=== PATIENT | female | born 1955 | race Caucasian/White ===

== ENCOUNTER 2018-02-19 08:21 | Inpatient (IN) ==
[2018-02-13 18:22] LABS: Appearance,Urine HAZY; Bacteria,Urine FEW /hpf (0); Bilirubin,Urine NEG (NEG); Color,Urine YELLOW; Glucose,Urine (UA) NEGATIVE (NEG); Leukocyte Esterase,Urine 500 /uL (NEG); Mucus,Urine FEW /hpf (0); Protein,Urine NEG (NEG); Specific Gravity,Urine 1.018 (1.000-1.035); Urine Blood 0.03 mg/dL (<0.03); Urine RBC 7 /hpf (0-1); Urine Squamous Epithelial Cell 8 /hpf (0-4); Urine WBC 80 /hpf (0-4); Urobilinogen,Urine NEG (NEG)
[2018-02-13 20:26] LABS: Blood Urea Nitrogen 12 mg/dl (8-23)
[2018-02-13 20:48] LABS: Basophils # (Auto) 0 K/mcL (0.0-0.3); Basophils % (Auto) 0.1 % (0.0-2.0); Eosinophils # (Auto) 0.1 K/mcL (0.0-0.7); Eosinophils % (Auto) 0.7 % (0.0-7.0); Granulocytes % (Auto) 65.3 % (38.0-78.0); Lymphocytes % (Auto) 13.9 % (15.5-49.0); Mean Cell Volume 108.4 fL (80.0-100.0); Mean Corpuscular HGB Conc 33.6 g/dL (31.0-36.0); Mean Corpuscular Hemoglobin 36.4 pg (26.0-34.0); Monocytes # (Auto) 1.5 K/mcL (0.1-0.9); Platelet Count 204 K/mcL (140-440); RBC 3.43 M/mcL (4.00-5.20); Red Cell Distribution Width 15.4 % (11.5-14.5)
[~2018-02-19 08:21] MED LIST: CELECOXIB 200 MG CAPSULE PO SCH; IPRATROPIUM/ALBUTEROL 3 ML AMPUL.NEB NEB PRN; KETOROLAC 30 MG, ROPIVACAINE HCL/PF 49.5 ML, EPINEPHrine 0.5 MG, 0.9 % SODIUM CHLORIDE ... IJ SCH; PREGABALIN 75 MG CAPSULE PO SCH; SCOPOLAMINE 1 PATCH PATCH TOPICAL PRN; VANCOMYCIN 1,000 MG in 0.9 % SODIUM CHLORIDE 250 ML IV SCH; oxyCODONE 10 MG TAB.ER.12H PO SCH
[2018-02-19 10:52] LABS: Appearance,Urine HAZY; Bacteria,Urine MANY /hpf (0); Bilirubin,Urine NEG (NEG); Color,Urine YELLOW; Glucose,Urine (UA) NEGATIVE (NEG); Leukocyte Esterase,Urine 25 /uL (NEG); Mucus,Urine FEW /hpf (0); Protein,Urine NEG (NEG); Specific Gravity,Urine 1.019 (1.000-1.035); Urine Blood NEG mg/dL (<0.03); Urine Hyaline Cast 2 /lpf (0-2); Urine RBC 0 /hpf (0-1); Urine Squamous Epithelial Cell 1 /hpf (0-4); Urine Transitional Epi Cells < 1 /hpf (0-2); Urine WBC 10 /hpf (0-4); Urobilinogen,Urine NEG (NEG)
[2018-02-19] MEDS ORDERED: PHENYLEPHRINE 10 MG/ML VIAL IV ONE (11:30)
[2018-02-19] MEDS ORDERED: LIDOCAINE HCL/PF 100 MG/5 ML SYRINGE IV ONE (11:30)
[2018-02-19] MEDS ORDERED: PROPOFOL 200 MG/20 ML VIAL IV ONE (11:30)
[2018-02-19] MEDS ORDERED: ePHEDrine 50 MG/ML AMPUL IV ONE (11:30)
[2018-02-19] MEDS ORDERED: DEXAMETHASONE 10 MG/ML VIAL IV ONE (11:30)
[2018-02-19] MEDS ORDERED: TRANEXAMIC ACID 1,000 MG/10 ML VIAL IV ONE ×2 (11:30→13:13)
[2018-02-19] MEDS ORDERED: ROPIVACAINE HCL/PF 20 ML VIAL IJ ONE (11:30)
[2018-02-19] MEDS ORDERED: KETAMINE 100 MG/ML ML IV ONE (11:30)
[2018-02-19] MEDS ORDERED: MIDAZOLAM 2 MG/2 ML VIAL IV ONE (11:30)
[2018-02-19] MEDS ORDERED: ONDANSETRON 4 MG/2 ML VIAL IV PRN ×2 (13:03→13:13)
[2018-02-19] MEDS ORDERED: ACETAMINOPHEN 1,000 MG/100 ML BOTTLE IV ONE (13:03)
[2018-02-19] MEDS ORDERED: METHOCARBAMOL 1,000 MG/10 ML VIAL IV PRN (13:03)
[2018-02-19] MEDS ORDERED: IPRATROPIUM/ALBUTEROL 3 ML AMPUL.NEB NEB PRN (13:03)
[2018-02-19] MEDS ORDERED: fentaNYL 100 MCG/2 ML VIAL IV PRN (13:03)
[2018-02-19] MEDS ORDERED: MEPERIDINE 25 MG/ML SYRINGE IV PRN (13:03)
[2018-02-19] MEDS ORDERED: BISACODYL 10 MG SUPP.RECT PR PRN (13:13)
[2018-02-19] MEDS ORDERED: BENZOCAINE/MENTHOL 1 LOZENGE PO PRN (13:13)
[2018-02-19] MEDS ORDERED: HYDROmorphone 2 MG/ML VIAL IV PRN (13:13)
[2018-02-19] MEDS ORDERED: oxyCODONE/APAP 5/325MG TABLET PO PRN (13:13)
[2018-02-19] MEDS ORDERED: POLYETHYLENE GLYCOL 3350 17 GM PACKET PO PRN (13:13)
[2018-02-19] MEDS ORDERED: MAGNESIUM HYDROXIDE 30 ML ORAL.SUSP PO PRN (13:13)
[2018-02-19] MEDS ORDERED: FLEETS ADULT ENEMA PR PRN (13:13)
--- NOTE | 2018-02-19 13:13 | Brief Operative Note ---
Date of procedure: 02/19/18 Pre-op diagnosis: R knee severe rheumatoid arthritis Post-op diagnosis: same Procedure: Right robotic assisted total knee arthroplasty Grafts/Implants: Yes ([employer] Triathlon PS 3 femur, 3 tibia, 11mm insert, 33 patella, 50 stem) Anesthesia: spinal, GLMA Findings: severe rheumatoid arthritis Complications: none Surgeon: Benedict Peralta Mining Support Worker: Jc Chakraborty Estimated blood loss (cc): 100 Specimens Removed/Pathology: none sent Condition: stable Disposition: PACU
[2018-02-19] MEDS ORDERED: LACTATED RINGERS 1,000 ML IV SCH (13:15)
[2018-02-19] MEDS ORDERED: CETIRIZINE 10 MG TABLET PO PRN (13:18)
[2018-02-19] MEDS ORDERED: METHOCARBAMOL 750 MG TABLET PO PRN (13:18)
[2018-02-19] MEDS ORDERED: NON FORMULARY MEDICATION 1 DOSE MISCELL (Epinephrine [Epipen] 0.3 MG) IM PRN (13:18)
[2018-02-19] MEDS ORDERED: valACYclovir 500 MG TABLET PO PRN (13:18)
--- NOTE | 2018-02-19 14:32 | XRay Report ---
CLINICAL INFORMATION: Reason for Exam:Post-op total knee. COMPARISON: None. FINDINGS: Total knee prostheses is anatomically aligned. No osseous abnormality. Soft tissue swelling seen as expected IMPRESSION: Negative Interpreted and Authenticated by: Aaron Cummings 02/19/18
--- NOTE | 2018-02-19 14:35 | XRay Report ---
CLINICAL INFORMATION: Hypotension COMPARISON: 10/24/2012 FINDINGS: Left Port-A-Cath tip overlies the right atrium. The heart is borderline enlarged. Mediastinum and pulmonary vessels are normal. A 17 vague focal density has developed in the right lateral lung base. The remaining lungs are clear. No effusion IMPRESSION: 17 mm vague density developing in the right lateral lung base. This is likely a focus of atelectasis or scar. Suggest two view upright chest x-ray when patient returns to clinical baseline. No acute disease Interpreted and Authenticated by: Aaron Cummings 02/19/18
[2018-02-19] MEDS ORDERED: PRAMIPEXOLE 0.25 MG TABLET PO PRN (15:00)
[2018-02-19] MEDS ORDERED: ALBUMIN HUMAN 25 GM/100 ML BAG IV ONE (15:53)
[2018-02-19] MEDS ORDERED: ALBUMIN HUMAN 37.5 GM/150 ML BAG IV ONE (15:55)
[2018-02-19] MEDS ORDERED: HYDROCORTISONE SOD SUCC 100 MG VIAL IV ONE (16:58)
--- NOTE | 2018-02-19 17:14 | General Surgery Progress Note ---
Surgical - Auxillary Note - Subjective Patient Information: Note initiated : 02/19/18 at 5:10 pm Service Date, if different from initiated Date: [] Patient: Aisha Bal 63 y/o F admitted on 02/19/18 for Right Total Arthroplasty Knee - Silver. Chief Complaint: [hypotension in TRANSFORMATION COACH report of persistent low bp without significant complaints. I ordered pcxr, abg and ekg. all reviewed, non revealing. Ordered colloid volume challenge, still persistent hypotension (MAP 60) Pt still wo complaints, not in extremis. Hydrocortisone 100 mg ivp ordered/given. will allow transfer to floor shortly.
[2018-02-19] MEDS ORDERED: POTASSIUM CHLORIDE 20 MEQ TABLET PO SCH (17:30)
[2018-02-19] MEDS: 0.9 % SODIUM CHLORIDE 1,000 ML IV SCH ×2 (18:11→22:04)
[2018-02-19] MEDS: 0.9 % SODIUM CHLORIDE 10 ML SYRINGE IV SCH ×2 (18:11→22:03)
[2018-02-19] MEDS: FOLIC ACID 1 MG TABLET PO SCH ×3 (18:12→23:10)
[2018-02-19] MEDS ORDERED: 0.9 % SODIUM CHLORIDE 1,000 ML IV ONE ×2 (20:05→22:10)
[2018-02-19] MEDS ORDERED: METOPROLOL TARTRATE 50 MG TABLET PO SCH (21:00)
[2018-02-19] MEDS ORDERED: VITAMIN D3 1,000 UNIT TABLET PO SCH (21:00)
[2018-02-19] MEDS ORDERED: SILVER SULFADIAZINE CREAM.TOP 25GM TOPICAL SCH (21:00)
[2018-02-19] MEDS ORDERED: DOCUSATE SODIUM 100 MG CAPSULE PO SCH (21:00)
[2018-02-19] MEDS ORDERED: LOSARTAN 50 MG TABLET PO SCH (21:00)
[2018-02-19] MEDS ORDERED: METOPROLOL SUCCINATE 50 MG TAB.XL.24H PO SCH (21:00)
[2018-02-19] MEDS ORDERED: CALCIUM W/VIT D3 500 MG TABLET PO SCH (21:00)
[2018-02-19] MEDS ORDERED: FAMOTIDINE 20 MG TABLET PO PRN (21:00)
[2018-02-19] MEDS ORDERED: SENNOSIDES 1 TABLET PO SCH (21:00)
[2018-02-19] MEDS ORDERED: ASPIRIN 325 MG ENTERIC COATED TABLET PO SCH (21:00)
[2018-02-19] MEDS ORDERED: SULFAMETHOXAZOLE/TRIMETHOPRIM 1 TABLET PO SCH (21:00)
[2018-02-19] MEDS ORDERED: VANCOMYCIN 1,000 MG in 0.9 % SODIUM CHLORIDE 250 ML IV ONE (23:00)
[2018-02-20] MEDS ORDERED: 0.9 % SODIUM CHLORIDE 1,000 ML IV SCH
[2018-02-20] MEDS ORDERED: 0.9 % SODIUM CHLORIDE 1,000 ML IV ONE (01:00)
[2018-02-20] MEDS: 0.9 % SODIUM CHLORIDE 1,000 ML IV ONE ×2 (01:05→02:52)
[2018-02-20] MEDS ORDERED: EPINEPHrine 1 MG/ML AMPUL ONE (03:44)
[2018-02-20] MEDS ORDERED: NOREPINEPHRINE BITARTRATE 4 MG/4 ML AMPUL IV ONE (03:44)
--- NOTE | 2018-02-20 04:50 | Death Note ---
Pronouncement Note - Date and Time of Date of : 02/20/18 Time of : 03:48 - PCOD Preliminary cause of : Cardiac arrest - Additional Data Confirmation of : no pulse, no respirations, no heart sounds, pupils fixed and dilated Family: attempt made Attending physician: Benedict Peralta Was code activated?: Yes
--- NOTE | 2018-02-20 05:14 | Internal Med Progress Note ---
Medical - Auxillary Note - Subjective Patient Information: Note initiated : 02/20/18 at 4:50 am Patient: Aisha Bal 63 y/o F admitted on 02/19/18 for Right Total Arthroplasty Knee - Silver. Chief Complaint: Chace Arauz Called to see this 63-year-old female due to CODE BLUE in progress. Patient was postop after right total knee arthroplasty which was done electively on 02/19/18. Postoperatively she had hypotension in the PACU, was receiving fluid boluses on the floor. Nursing had been with the patient approximately 20 minutes earlier, patient awake, alert and conversant. No apparent complaints of chest pain or tightness, no dyspnea. When her nurse returned for a check on urine output and vitals, the patient was unresponsive, she was ashen and cold with the touch. CHACE ARAUZ was called. It was approximately 3:15 AM. The initial rhythm once the defibrillator was applied was reported as agonal. I was called to assist with the CODE BLUE. Dr. Tate from the emergency department was at present and initially managing the code. At the time the code was started, the patient's pupils were noted to be dilated. Upon my arrival, chest compressions were in progress, the patient was being ventilated by bag valve mask. Initial rhythm that I saw during holding of CPR was asystole. She received epinephrine x 2, and at 03:24 there is return of spontaneous circulation, with an irregular rhythm consistent with atrial fibrillation, initial blood pressure 123/84. She continued to receive IV fluids, was ventilated, was intubated. ET tube was confirmed by auscultation and return of carbon dioxide. Prior to obtaining a chest film or EKG or laboratory studies, the patient had decline in blood pressure, pulse became weak and CPR was resumed. During this time was continued with ventilation via the ET tube. Pulse oximetry could not be obtained due to poor peripheral circulation in the the extremities, though she was ventilated without difficulty. Patient received further epinephrine with CPR. There was a second return of circulation, with irregular narrow complex rhythm on the defibrillator monitor. Femoral pulses were palpable, but it was difficult to obtain a blood pressure. Subsequently pulse became weaker, rhythm on the monitor became bradycardic and agonal, she receive further epinephrine, as well as bicarbonate. Patient subsequent loss of pulse again, resumption of CPR, further epinephrine, further bicarbonate. The patient remained with fixed and dilated pupils, was otherwise nonresponsive. Pulse briefly returned (3rd instance), but rapidly faded. At this point, resuscitation been ongoing for over 30 minutes with worsening response to resuscitation efforts and no reversible cause identified. After discussion with those present on the code team, the code was stopped at 03:48 hrs. One exam, the patient was pulseless, no heart tones were palpable, there were no spontaneous respirations, no breath sounds. Pupils were 7 mm and fixed. No response to external stimuli. Monitor showed agonal rhythm that faded to asystole. The etiology of the cardiac arrest is unclear. She was unresponsive, skin was cold of the touch at the time of the code being called. She may have experienced a postoperative cardiac ischemic event, that degraded to asystole. Other considerations include pulmonary embolism. Laboratories were reviewed, no evidence of hypo-or hyperkalemia pre-operatively. Prior to the CODE BLUE, whe has a normal body temperature. She had good bilateral breath sounds, tension pneumothorax was less likely. She had been receiving volume repeatedly through the evening. 32 minutes critical care time at bedside Vital Signs Temp Pulse Resp BP Pulse Ox 98.6 F 96 H 15 86/51 96 02/19/18 13:40 02/20/18 02:26 02/19/18 17:45 02/20/18 02:26 02/20/18 02:26 Period Temp Pulse Resp BP Sys/Hussein Pulse Ox Last 24 Hr 98.6 F 80-123 13-19 57-138/31-75 81-100 Intake and Output 02/19/18 02/19/18 02/20/18 13:59 21:59 05:59 Intake Total 1999 350 / 350 2681 / 2681 Output Total 450 / 450 57 / 57 Balance 1999 -100 / -100 2624 / 2624 Weight 141 lb Patient Weight 02/20/18 05:59 Weight 141 lb Medications Aspirin (Ecotrin) 325 mg PO BID [facility] Last Admin: 02/19/18 22:02 Dose: 325 mg Bisacodyl (Dulcolax) 10 mg [place] Q2-3DAYS PRN PRN Reason: Constipation Calcium/Vitamin D (Calcium W/Vit D3) 500 mg PO BID [facility] Last Admin: 02/19/18 22:02 Dose: Not Given Cetirizine HCl (Zyrtec) 10 mg PO DAILYP PRN PRN Reason: ALLERGIES Cyanocobalamin (Vitamin B12) 1,000 mcg IM QMONTH [facility] Diltiazem HCl (Cardizem Cd) 180 mg PO ACB [facility] Docusate Sodium (Colace) 100 mg PO BID [facility] Last Admin: 02/19/18 22:03 Dose: Not Given Famotidine (Pepcid) 20 mg PO DAILYP PRN PRN Reason: INDIGESTION Folic Acid (Folic Acid) 1 mg PO TID [facility] Last Admin: 02/19/18 23:10 Dose: Not Given Hydromorphone HCl (Dilaudid) 0 mg IV Q2HP PRN PRN Reason: PAIN LEVEL > 6 Sodium Chloride (Sodium Chloride 0.9%) 1,000 mls @ 0 mls/hr IV BOLUS ONE PRN Reason: Wide Open Stop: 02/19/18 22:11 Last Infusion: 02/20/18 00:02 Dose: Infused Sodium Chloride (Sodium Chloride 0.9%) 1,000 mls @ 0 mls/hr IV BOLUS ONE PRN Reason: Wide Open Stop: 02/20/18 01:01 Last Admin: 02/20/18 01:05 Dose: 750 mls/hr Iron Carb/Multivit/[place]/Folic Acid (Multivitamin W/Minerals) 1 tab PO DAILY [facility] Losartan Potassium (Cozaar) 50 mg PO BID [facility] Last Admin: 02/19/18 22:03 Dose: Not Given Magnesium Hydroxide (Milk Of Magnesia) 30 ml PO BIDP PRN PRN Reason: Constipation Methocarbamol (Robaxin) 750 mg PO TIDP PRN PRN Reason: Pain Metoprolol Succinate (Toprol Xl) 50 mg PO HS [facility] Last Admin: 02/19/18 22:03 Dose: Not Given Omeprazole (Prilosec) 20 mg PO ACB [facility] Ondansetron HCl (Zofran) 4 mg IV Q4HP PRN PRN Reason: Nausea And Vomiting Oxycodone/Acetaminophen (Percocet 5-325 Mg) 0 tab PO Q4HP PRN PRN Reason: PAIN LEVEL 3-6 Diclofenac Sodium [ (Voltaren] Gel) 1 dose TOPICAL QID [facility] Last Admin: 02/19/18 22:03 Dose: Not Given Flaxseed Oil 1,000 (Mg Cap) 1 dose PO TID [facility] Last Admin: 02/19/18 22:03 Dose: Not Given Polyethylene Glycol (Miralax) 17 gm PO DAILYP PRN PRN Reason: Constipation Potassium Chloride (Kdur) 20 meq PO BIDCC [facility] Last Admin: 02/19/18 18:15 Dose: Not Given Pramipexole Dihydrochloride (Mirapex) 0.125 - 0.5 mg PO HSP PRN PRN Reason: RESTLESS LEGS Last Admin: 02/20/18 00:21 Dose: 0.25 mg Prednisone (Prednisone) 5 mg PO [facility] Senna (Senokot) 2 tab PO HS [facility] Last Admin: 02/19/18 22:03 Dose: Not Given Silver Sulfadiazine (Silvadene) 1 dose TOPICAL BID [facility] Last Admin: 02/19/18 22:03 Dose: Not Given Sodium Biphosphate/Sodium Phosphate (Fleets Adult) 1 dose [place] Q3-4DAYS PRN PRN Reason: Constipation Sodium Chloride (Saline Flush) 10 ml IV Q8 [facility] Last Admin: 02/19/18 22:03 Dose: Not Given Sodium Chloride (Sodium Chloride) 1 gm PO DAILY [facility] Throat Lozenges (Cepacol) 1 lozenge PO PRN PRN PRN Reason: Sore Throat Trimethoprim/Sulfamethoxazole (Bactrim Ds) 1 tab PO BID [facility] Last Admin: 02/19/18 22:02 Dose: 1 tab Valacyclovir HCl (Valtrex) 1,000 mg PO DAILYP PRN PRN Reason: Cold Sores Vitamin D (Vitamin D3) 2,000 unit PO BID [facility] Last Admin: 02/19/18 22:03 Dose: Not Given Result Diagarams 02/13/18 15:27 02/13/18 15:27 Abnormal Labs 02/19/18 02/19/18 10:00 09:00 POC Total CO2 19 L POC Creatinine 1.5 H Ur Leukocyte Esterase 25 A Urine WBC 10 H Urine Bacteria Many A
[2018-02-20] MEDS ORDERED: OMEPRAZOLE 20 MG CAPSULE PO SCH (07:30)
[2018-02-20] MEDS ORDERED: DILTIAZEM 180 MG CAP.XL.24H PO SCH (07:30)
[2018-02-20] MEDS ORDERED: predniSONE 5 MG TABLET PO SCH (08:00)
--- NOTE | 2018-02-20 08:18 | Operative Note ---
DATE OF OPERATION: 02/19/2018 PREOPERATIVE DIAGNOSIS: Right knee severe rheumatoid arthritis. POSTOPERATIVE DIAGNOSIS: Right knee severe rheumatoid arthritis. PROCEDURE PERFORMED: Right robotic-assisted total knee arthroplasty placing a size 3 posterior stabilized femoral component, a size 3 tibial baseplate with a 50 mm stem, an 11 mm X3 tibial insert with a 33 mm patellar button. SURGEON: Benedict Peralta MD. ACCOUNTANT CERTIFIED PUBLIC: Nima Chakraborty PA-C. ANESTHESIA: Spinal plus general. DRAINS: None. SPECIMENS: Bone cuts which were discarded. BLOOD LOSS: 100 mL. POSTOPERATIVE CONDITION: Stable. INDICATIONS FOR SURGERY: This is a 63-year-old female with rheumatoid arthritis. She has had longstanding progressive worsening severe right knee pain with deformity. FINDINGS AT SURGERY: She had severe arthritis with extensive synovitis. Post implantation showed good overall limb alignment, patellar tracking, and joint stability. PROCEDURE IN DETAIL: The patient had been seen preoperatively. Informed consent had been obtained after discussion of risks and benefits of surgery. Risks including, but not limited to, bleeding, possibly requiring transfusion; infection, possibly requiring implant removal and prolonged IV antibiotics, this being increased given her poor skin quality; injury to nerves, blood vessels other surrounding structures; anesthetic risks; incomplete or no resolution of symptoms; stiffness; pain; weakness; instability; swelling; and possibility of needing further revision surgery. She understood these risks and wished to proceed. The correct operative site was marked and patient received spinal anesthesia. She was then taken to the operating room and LMA general given. The right lower extremity was carefully prepped and draped in normal sterile fashion, and a time-out was performed verifying patient name, operative site, and plan. Esmarch was used to exsanguinate the extremity and tourniquet was inflated to 250 mmHg. A midline incision was made with a scalpel through skin and subcutaneous tissue and then hemostasis obtained with Bovie cautery. Irrisept was irrigated and then a medial parapatellar arthrotomy made. Subperiosteal exposure was done of the anterior, medial proximal tibia and then retropatellar fat pad was excised. We did a freehand resection of the patella after measuring the thickness. Post-resection showed adequate resection. We went ahead and placed a cut protector. We made two stab incisions over the tibia and two over the femur and placed bicortical pins and then connected the arrays. We placed the femoral and tibial checkpoint. We then did our Irrisept irrigation in the joint and then did a hip center of rotation check, followed by the green probe to the medial and lateral malleoli and double-checks of our femoral and tibial checkpoints. We then used the blue probe to do our cartilage mapping, and once this was completed, we then removed osteophytes with a rongeur. We then checked our flexion-extension gaps and adjusted implant positioning accordingly to get 17 mm gaps throughout. However, this left us taking no bone off of the distal lateral femoral condyle, so we did have to move the femoral implant proximally a couple millimeters, which then required us to anteriorize some and increase our likely tibial insert thickness. Once we had everything balanced at 18, we then used the robotic arm to do our bone cuts. Once this was completed, we prepared the tibia actually rotating as bone coverage would allow. We used a boss reamer and keel punch to prepare and then placed a keeled tibial trial. Femur was elevated and posterior osteophytes removed with a curved osteotome. She also had some large loose bodies that were removed. We then used the box cutting jig to cut our box and then a femoral trial was impacted. We went right to a size 11, which we were able to snap in without too much difficulty. Extension showed about 10 degrees short of full. We then drilled our patella, placing a 33 which was medialized maximally. Patellar trial was placed and a limited lateral facetectomy was performed. We then checked our patellar tracking, which was good. We went ahead and opened implants. The joint was again irrigated with Irrisept, after a minute pulse lavaged with saline. Antibiotic cement was mixed. We did use a 50 mm stem. We cemented the tibia and excess cement removed. We then cemented the femur and excess cement removed, and then an 11 insert trial was placed, and the knee was taken into full extension. We then cemented the patellar button. We then filled the joint with Irrisept after removing our checkpoints and then injected pain cocktail into the pericapsular and subcutaneous tissues. We then went ahead and removed the pins for the arrays. After cement had fully hardened, we flexed the knee up and did a final inspection for cement. We opened the 11 X3 tibial insert. The trial insert was removed. We injected pain cocktail in the posterior capsules. We then impacted the definitive insert. The knee was filled with Irrisept, after a minute pulse lavage, and then it was placed in about 45 degrees of flexion. Interrupted [id number] #2 FiberWire was used around the superior quadrant of the patella, interrupted #1 Vicryl [id number] around the inferior quadrant of the patella, and running #1 Vicryl was used for patellar tendon and quad tendon. Final Irrisept irrigation done, and after a minute final pulse lavage, and then 2-0 Monocryl for subcutaneous and alexa for skin. Xeroform and sterile dressing were applied. Tourniquet was released. The patient was awakened, extubated, and transferred to recovery in stable condition. [email or web address] Job ID: [id number] Doc ID: [id number] Benedict Peralta MD
[2018-02-20] MEDS ORDERED: SODIUM CHLORIDE 1 GM TABLET PO SCH (09:00)
[2018-02-20] MEDS ORDERED: MULTIVIT,THER IRON,CA,FA & MIN 1 TABLET PO SCH (09:00)
[2018-03-02] MEDS ORDERED: CYANOCOBALAMIN 1,000 MCG/ML VIAL IM SCH (09:00)
== END 2018-02-20 03:48 | disposition expired | DRG 470 ==
LOC: MEDSUR 08:21
PROVIDERS: ADMIT Orthopaedic Surgery; ATTEND Orthopaedic Surgery